=== PATIENT | male | born 1965 | race Caucasian/White ===

== ENCOUNTER 2016-10-28 04:11 | Emergency (ER) | payer OTHER ==
[2016-10-28 04:15] VITALS: BP 191/93; PULSE 57; RESP 16; TEMP 98.4; O2SAT 97
[2016-10-28] MEDS ORDERED: PERI0.126 SWISH-SPIT (04:26)
[2016-10-28] MEDS ORDERED: CLIN1CAP5 PO (04:26)
[2016-10-28] MEDS ORDERED: TRAM50TA PO (04:26)
--- NOTE | 2016-10-28 04:26 | PD ---
HPI Chief Complaint: Oral / Dental Pain or Problem Time Seen by Provider: 04:22 Travel History International Travel<30 days: No Contact w/Intl Traveler<30days: No Traveled to known affect area: No History of Present Illness HPI 50-year-old male presents to emergency department for evaluation of dental pain , and swelling associated with the right mandibular first and second bicuspid. Patient has generalized poor dentition and states he has had bad teeth for "a long time" however he developed increased pain over the last 2-3 days with swelling noticed this morning. Denies fever or chills. No trauma. States that he has a foul taste and odor coming from the area. Denies any other symptoms at this time. PFSH Past Medical History Anxiety: Yes Hypertension: Yes Medical other: Yes (INSOMNIA ) ?: Not Past Surgical History Surgical History: No Previous Surgery Social History Alcohol Use: No Tobacco Use: Yes (1/2 PACK A DAY ) Substance Use: No Allergies-Medications (Allergen,Severity, Reaction): Coded Allergies: No Known Allergies (Unverified , 10/28/16) Reported Meds & Prescriptions Reported Meds & Active Scripts Active Tramadol (Tramadol HCl) 50 Mg Tab 50 Mg PO Q6H PRN Peridex Liq (Chlorhexidine Gluconate (Mouth) Liq) 0.12% Soln 15 Ml SWISH-SPIT BID Clindamycin (Clindamycin HCl) 150 Mg Cap 300 Mg PO Q6H 10 Days Review of Systems Except as stated in HPI: all other systems reviewed are Neg Physical Exam Narrative GENERAL: Well-nourished, well-developed male patient in no acute distress SKIN: Focused skin assessment warm/dry. HEAD: Normocephalic. Edema along the right mandible EYES: No scleral icterus. No injection or drainage. DENTAL: Generalized poor dentition. There is an abscess appreciated in the buccal space adjacent to the first and second bicuspid on the right mandible. It has a purulent drainage from it. No malocclusion. Submental spaces soft. NECK: Supple, trachea midline. No JVD or lymphadenopathy. CARDIOVASCULAR: Regular rate and rhythm without murmurs, gallops, or rubs. RESPIRATORY: Breath sounds equal bilaterally. No accessory muscle use. Data Data Last Documented VS Vital Signs Date Time Temp Pulse Resp B/P (MAP) Pulse Ox O2 Delivery O2 Flow Rate FiO2 10/28/16 05:11 65 14 160/90 (113) 97 10/28/16 04:15 98.4 Room Air Orders Orders Clindamycin Inj (Cleocin Inj) (10/28/16 04:30) Dexamethasone Inj (Decadron Inj) (10/28/16 04:30) MDM Medical Decision Making Medical Screen Exam Complete: Yes Emergency Medical Condition: Yes Medical Record Reviewed: Yes Differential Diagnosis Dental caries versus dental abscess versus gingivitis versus pulpitis Narrative Course 50-year-old male presents to the emergency department for evaluation. Patient appears without distress. He does have an appreciable abscess that is already draining. He is treated with oral antibiotics and mouthwash. He is encouraged to follow-up with a dentist and return immediately with any acute worsening symptoms. Diagnosis Primary Impression: Dental abscess Referrals: Dentist Primary Care Physician Patient Instructions: Dental Abscess (ED), General Instructions Additional Instructions: Seek dental evaluation Follow-up with primary care provider Return immediately with any acute worsening of symptoms Med/Other Pt SpecificInfo: Prescription(s) given Scripts Tramadol (Tramadol) 50 Mg Tab 50 MG PO Q6H Y for PAIN, #15 TAB 0 Refills Prov: Anabell Jefferson 10/28/16 Chlorhexidine Gluconate (Mouth) Liq (Peridex Liq) 0.12% Soln 15 ML SWISH-SPIT BID, #473 ML 0 Refills Prov: Anabell Jefferson 10/28/16 Clindamycin (Clindamycin) 150 Mg Cap 300 MG PO Q6H for Infection for 10 Days, #80 CAP 0 Refills Prov: Anabell Jefferson 10/28/16 Disposition: 01 DISCHARGE HOME Condition: Stable Anabell Jefferson Oct 28, 2016 04:26
[2016-10-28] MEDS ORDERED: CLINDAMYCIN PHOS 600 MG/4 ML VIAL IM ONE (04:30)
[2016-10-28] MEDS ORDERED: DEXAMETHASONE SOD PHOS 4 MG/ML VIAL IM ONE (04:30)
[2016-10-28 05:11] VITALS: BP 160/90
== END 2016-10-28 05:15 | disposition home or self-care (01) ==
LOC: NEPD 04:11
DX: K04.7 Periapical abscess without sinus (principal); I10 Essential (primary) hypertension; F17.200 Nicotine dependence, unspecified, uncomplicated; Z86.59 Personal history of other mental and behavioral disorders
CPT/HCPCS: 96372; 99284; J1100